=== PATIENT | female | born 1995 | race Caucasian/White ===

== ENCOUNTER 2016-11-19 02:53 | Emergency (ER) | payer OTHER ==
[~2016-11-19] VITALS: Ht 172.7 cm; Wt 79.0 kg
[2016-11-19 03:23] VITALS: BP 137/87; PULSE 96; RESP 16; TEMP 98.6; O2SAT 98
[2016-11-19] MEDS ORDERED: [UNRECOGNIZED DRUG - REMARK] PO (03:31)
[2016-11-19] MEDS ORDERED: CITA10TA4 PO (03:31)
--- NOTE | 2016-11-19 03:33 | PD ---
HPI Chief Complaint: Suicide Ideation/Attempt Time Seen by Provider: 03:18 Travel History International Travel<30 days: No Contact w/Intl Traveler<30days: No Traveled to known affect area: No History of Present Illness HPI 21y white female presents to the emergency department, Syed Cheng from [facility]. She told her family that she was going to kill herself and the family called the police. She says she does has a history of suicidal ideations but never had an attempt. She has been in an 'institution' but has never been hospitalized for this. Denies inappropriate administration of medications or overdose. PFSH Past Medical History ?: Not LMP: Mar 2016 IUD Social History Tobacco Use: No Allergies-Medications (Allergen,Severity, Reaction): Coded Allergies: Penicillins (Verified Allergy, Severe, 11/19/16) Reported Meds & Prescriptions Reported Meds & Active Scripts Active Reported [unknown med] 1 Tab PO HS Citalopram (Citalopram Hydrobromide) 10 Mg Tab 10 Mg PO DAILY Review of Systems Except as stated in HPI: all other systems reviewed are Neg Physical Exam Narrative 21y white female, well- kept presents to the ED as a Syed Cheng. She is tearful upon questioning of her medical and psychiatric history but answers all questions appropriately and denies having a plan to kill herself. Data Data Last Documented VS Vital Signs Date Time Temp Pulse Resp B/P (MAP) Pulse Ox O2 Delivery O2 Flow Rate FiO2 11/19/16 03:23 98.6 96 16 137/87 (104) 98 Orders Orders Complete Blood Count With Diff (11/19/16 03:24) Basic Metabolic Panel (Bmp) (11/19/16 03:24) Psych Screen (11/19/16 03:24) Drug Screen, Random Urine (11/19/16 03:24) Alcohol (Ethanol) (11/19/16 03:24) Ed Urine Pregnancytest Poc (11/19/16 03:26) Urinalysis - C+S If Indicated (11/19/16 04:39) Diet Regular Basic (11/19/16 Breakfast) Labs Laboratory Tests Test 11/19/16 03:30 White Blood Count 16.8 TH/MM3 Red Blood Count 5.03 MIL/MM3 Hemoglobin 13.3 GM/DL Hematocrit 41.2 % Mean Corpuscular Volume 81.9 FL Mean Corpuscular Hemoglobin 26.5 PG Mean Corpuscular Hemoglobin Concent 32.3 % Red Cell Distribution Width 14.5 % Platelet Count 296 TH/MM3 Mean Platelet Volume 10.0 FL Neutrophils (%) (Auto) 72.2 % Lymphocytes (%) (Auto) 16.3 % Monocytes (%) (Auto) 8.6 % Eosinophils (%) (Auto) 2.2 % Basophils (%) (Auto) 0.7 % Neutrophils # (Auto) 12.2 TH/MM3 Lymphocytes # (Auto) 2.7 TH/MM3 Monocytes # (Auto) 1.5 TH/MM3 Eosinophils # (Auto) 0.4 TH/MM3 Basophils # (Auto) 0.1 TH/MM3 CBC Comment DIFF FINAL Differential Comment Blood Urea Nitrogen 14 MG/DL Creatinine 0.85 MG/DL Random Glucose 92 MG/DL Calcium Level 8.9 MG/DL Sodium Level 140 MEQ/L Potassium Level 3.5 MEQ/L Chloride Level 108 MEQ/L Carbon Dioxide Level 23.9 MEQ/L Anion Gap 8 MEQ/L Estimat Glomerular Filtration Rate 85 ML/MIN Urine Opiates Screen NEG Urine Barbiturates Screen NEG Urine Amphetamines Screen NEG Urine Benzodiazepines Screen NEG Urine Cocaine Screen NEG Urine Cannabinoids Screen POS Ethyl Alcohol Level LESS THAN 3 MG/DL MDM Medical Decision Making Medical Screen Exam Complete: Yes Emergency Medical Condition: Yes Differential Diagnosis Suicidal Ideation Narrative Course 21y white female presents to the emergency department, [facility] from [facility]. She told her family that she was going to kill herself and he family called the police. She says she does has a history of suicidal ideations but never had an attempt. She has been in an 'institution' but has never been hospitalized for this. She states that she is complaint with her medications and denies illicit drug use. Labs are non-contributory. She will be evaluated by psychiatry. Mental health screening discussed with the patient. Psychiatric screen ordered. Diagnosis Primary Impression: Suicidal ideations Condition: Stable Swati Vanegas Nov 19, 2016 03:33
[2016-11-19 03:54] LABS: AUTOMATED NEUTROPHIL # 12.2 TH/MM3 (1.8-7.7); BASOPHIL # 0.1 TH/MM3 (0-0.2); BASOPHIL % 0.7 % (0.0-2.0); EOSINOPHIL # 0.4 TH/MM3 (0-0.4); EOSINOPHIL % 2.2 % (0.0-4.0); HEMATOCRIT 41.2 % (35.0-46.0); HEMO FLAGS DIFF FINAL; LYMPH % 16.3 % (9.0-44.0); LYMPHOCYTE # 2.7 TH/MM3 (1.0-4.8); MEAN CELL VOLUME 81.9 FL (80.0-100.0); MEAN CORPUSCULAR HEMOGLOBIN 26.5 PG (27.0-34.0); MEAN CORPUSCULAR HGB CONC 32.3 % (32.0-36.0); MONO % 8.6 % (0.0-8.0); NEUT % 72.2 % (16.0-70.0); PLATELET COUNT 296 TH/MM3 (150-450); RED BLOOD COUNT 5.03 MIL/MM3 (4.00-5.30); RED CELL DISTRIBUTION WIDTH 14.5 % (11.6-17.2); WHITE BLOOD COUNT 16.8 TH/MM3 (4.0-11.0)
[2016-11-19 04:06] LABS: ANION GAP 8 MEQ/L (5-15); BICARBONATE 23.9 MEQ/L (21.0-32.0); BLOOD UREA NITROGEN 14 MG/DL (7-18); CHLORIDE 108 MEQ/L (98-107); GLOMERULAR FILTRATION RATE 85 ML/MIN (>89); POTASSIUM 3.5 MEQ/L (3.5-5.1); SODIUM (NA) 140 MEQ/L (136-145)
[2016-11-19 04:09] LABS: ALCOHOL LESS THAN 3 MG/DL (0-5)
--- NOTE | 2016-11-19 13:23 | PD ---
Data Data Last Documented VS Vital Signs Date Time Temp Pulse Resp B/P (MAP) Pulse Ox O2 Delivery O2 Flow Rate FiO2 11/19/16 03:23 98.6 96 16 137/87 (104) 98 Orders Orders Complete Blood Count With Diff (11/19/16 03:24) Basic Metabolic Panel (Bmp) (11/19/16 03:24) Psych Screen (11/19/16 03:24) Drug Screen, Random Urine (11/19/16 03:24) Alcohol (Ethanol) (11/19/16 03:24) Ed Urine Pregnancytest Poc (11/19/16 03:26) Urinalysis - C+S If Indicated (11/19/16 04:39) Diet Regular Basic (11/19/16 Breakfast) Diet Regular Basic (11/19/16 Lunch) Labs Laboratory Tests Test 11/19/16 03:30 White Blood Count 16.8 TH/MM3 Red Blood Count 5.03 MIL/MM3 Hemoglobin 13.3 GM/DL Hematocrit 41.2 % Mean Corpuscular Volume 81.9 FL Mean Corpuscular Hemoglobin 26.5 PG Mean Corpuscular Hemoglobin Concent 32.3 % Red Cell Distribution Width 14.5 % Platelet Count 296 TH/MM3 Mean Platelet Volume 10.0 FL Neutrophils (%) (Auto) 72.2 % Lymphocytes (%) (Auto) 16.3 % Monocytes (%) (Auto) 8.6 % Eosinophils (%) (Auto) 2.2 % Basophils (%) (Auto) 0.7 % Neutrophils # (Auto) 12.2 TH/MM3 Lymphocytes # (Auto) 2.7 TH/MM3 Monocytes # (Auto) 1.5 TH/MM3 Eosinophils # (Auto) 0.4 TH/MM3 Basophils # (Auto) 0.1 TH/MM3 CBC Comment DIFF FINAL Differential Comment Blood Urea Nitrogen 14 MG/DL Creatinine 0.85 MG/DL Random Glucose 92 MG/DL Calcium Level 8.9 MG/DL Sodium Level 140 MEQ/L Potassium Level 3.5 MEQ/L Chloride Level 108 MEQ/L Carbon Dioxide Level 23.9 MEQ/L Anion Gap 8 MEQ/L Estimat Glomerular Filtration Rate 85 ML/MIN Urine Opiates Screen NEG Urine Barbiturates Screen NEG Urine Amphetamines Screen NEG Urine Benzodiazepines Screen NEG Urine Cocaine Screen NEG Urine Cannabinoids Screen POS Ethyl Alcohol Level LESS THAN 3 MG/DL MDM Medical Record Reviewed: Yes Supervised Visit with CHARI: Yes Narrative Course Patient reports no suicidal ideation. She is here with her mother who states she is not concerned about the patient's increased to herself. The patient has a psychiatrist at home. She is visiting here on vacation with her parents and has a safe environment to go to. Patient states after thinking about her complaint she feels much better. She states she was speaking only in a figure of speech. In this scenario I do not believe the patient requires inpatient psychiatric management as she has a strong social support network, reliable psychiatry follow-up and provides a reasonably compelling and sober assessment of her psychiatric disease. Diagnosis Primary Impression: Suicidal ideations Referrals: Psychiatrist 1 week Med/Other Pt SpecificInfo: No Change to Meds Disposition: 01 DISCHARGE HOME Condition: Stable Lenard Dawson MD Nov 19, 2016 13:23
--- NOTE | 2016-11-19 14:37 | PD ---
Data Data Last Documented VS Vital Signs Date Time Temp Pulse Resp B/P (MAP) Pulse Ox O2 Delivery O2 Flow Rate FiO2 11/19/16 03:23 98.6 96 16 137/87 (104) 98 Orders Orders Complete Blood Count With Diff (11/19/16 03:24) Basic Metabolic Panel (Bmp) (11/19/16 03:24) Psych Screen (11/19/16 03:24) Drug Screen, Random Urine (11/19/16 03:24) Alcohol (Ethanol) (11/19/16 03:24) Ed Urine Pregnancytest Poc (11/19/16 03:26) Urinalysis - C+S If Indicated (11/19/16 04:39) Diet Regular Basic (11/19/16 Breakfast) Diet Regular Basic (11/19/16 Lunch) Labs Laboratory Tests Test 11/19/16 03:30 White Blood Count 16.8 TH/MM3 Red Blood Count 5.03 MIL/MM3 Hemoglobin 13.3 GM/DL Hematocrit 41.2 % Mean Corpuscular Volume 81.9 FL Mean Corpuscular Hemoglobin 26.5 PG Mean Corpuscular Hemoglobin Concent 32.3 % Red Cell Distribution Width 14.5 % Platelet Count 296 TH/MM3 Mean Platelet Volume 10.0 FL Neutrophils (%) (Auto) 72.2 % Lymphocytes (%) (Auto) 16.3 % Monocytes (%) (Auto) 8.6 % Eosinophils (%) (Auto) 2.2 % Basophils (%) (Auto) 0.7 % Neutrophils # (Auto) 12.2 TH/MM3 Lymphocytes # (Auto) 2.7 TH/MM3 Monocytes # (Auto) 1.5 TH/MM3 Eosinophils # (Auto) 0.4 TH/MM3 Basophils # (Auto) 0.1 TH/MM3 CBC Comment DIFF FINAL Differential Comment Blood Urea Nitrogen 14 MG/DL Creatinine 0.85 MG/DL Random Glucose 92 MG/DL Calcium Level 8.9 MG/DL Sodium Level 140 MEQ/L Potassium Level 3.5 MEQ/L Chloride Level 108 MEQ/L Carbon Dioxide Level 23.9 MEQ/L Anion Gap 8 MEQ/L Estimat Glomerular Filtration Rate 85 ML/MIN Urine Opiates Screen NEG Urine Barbiturates Screen NEG Urine Amphetamines Screen NEG Urine Benzodiazepines Screen NEG Urine Cocaine Screen NEG Urine Cannabinoids Screen POS Ethyl Alcohol Level LESS THAN 3 MG/DL MDM Supervised Visit with CHARI: Yes Differential Diagnosis This report is in ERROR Please disregard this report and all prior copies ! This report is in ERROR Please disregard this report and all prior copies ! This report is in ERROR Please disregard this report and all prior copies ! Diagnosis Primary Impression: Suicidal ideations Referrals: Psychiatrist 1 week Patient Instructions: General Instructions Departure Forms: Tests/Procedures Disposition: 01 DISCHARGE HOME Condition: Stable Lenard Dawson MD Nov 19, 2016 14:37
== END 2016-11-19 14:51 | disposition home or self-care (01) ==
LOC: NEPD 02:53 → NEDAMB 14:51
DX: R45.851 Suicidal ideations (principal); Z79.899 Other long term (current) drug therapy
CPT/HCPCS: 80048; 80307; 84703; 85025; 99283